=== PATIENT | male | born 1960 | race Caucasian/White ===

== ENCOUNTER 2024-10-12 08:24 | Emergency (ER) | payer MEDICARE, SELFPAY ==
[2024-10-12 08:36] VITALS: BP 135/84
[2024-10-12 08:41] LABS: Glucose - Point of Care 410 mg/dl (70-99)
[2024-10-12 09:09] LABS: % Basophils 0.3 % (0-2); % Immature Granulocytes 0.3 % (0-0.5); % Lymphocytes 19.9 % (20.5-51.1); % Monocytes 4.6 % (1.7-9.3); % Neutrophils 72.9 % (42.2-75.2); Absolute Eosinophils 0.2 10^3/uL (0-0.7); Absolute Monocytes 0.5 10^3/uL (0.1-0.6); Absolute Neutrophils 7.2 10^3/uL (1.4-6.5); Hematocrit 51.4 % (39.0-52.0); Hemoglobin 17.9 g/dL (13.0-18.0); Mean Corp Hgb Conc. 34.8 g/dL (33.0-37.0); Mean Corpuscular Hgb 30.6 pg (27.0-31.0); Mean Corpuscular Volume 87.9 fL (80.0-94.0); Mean Platelet Volume 10.7 fL (7.4-10.4); Nucleated Red Blood Cells % 0 % (-); Platelet Count 168 10^3/uL (130-400); Red Blood Cell Count 5.85 10^6/uL (4.70-6.10); Red Cell Dist. Width 12.5 % (11.5-14.5); White Blood Cell Count 9.9 10^3/uL (4.8-10.8)
--- NOTE | 2024-10-12 09:10 | ED.GENMED ---
History of Present Illness
General
Chief Complaint: Fainting/Passed Out
Time Seen by Provider: 10/12/24 08:57
History of Present Illness
History of Present Illness:
64-year-old male with prior history of hypertension hyperlipidemia as well as long-term tobacco use presents emergency department for evaluation after a syncopal event. states that he was outside smoking a cigarette when he came in he sat
awkwardly on a chair and fell backward, was unconscious for approximately 1 minute. When he awoke he was only minimally confused. Patient has no recollection of the events. He denies any pain after the fall. Specifically denies headache, vision
changes, chest pain, shortness of breath, or back pain. No recent illnesses of any kind. He admits he does not see primary care routinely, only recently acquired insurance. He does admit to recent polyuria and polydipsia
Past History
Past History
ED Past Medical History: HTN, Hypercholesterolemia and Other (GERD)
ED Past Surgical History: Appendectomy
Social History
Tobacco: Smoker
Alcohol: Occasional
Drug: None
Personal:
Living: with family
Family History
Family History: Negative Diabetes
Review of Systems
Review of Systems
Allergies reviewed?: Yes
All Other Systems: ROS reviewed and negative except as documented in HPI and ROS
Phy Exam
Physical Exam
Physical Exam:
GEN: Well appearing, NAD, WDWN
HEENT: Normocephalic and atraumatic, no cephalohematoma, oral mucosa moist, no scleral icterus, no nasal congestion
Cardiac: Regular rate and rhythm, no murmur
Lung: No respiratory distress, no tachypnea, lungs clear albeit diminished in the bases bilaterally
MSK: No gross deformity or injuries, no midline cervical, thoracic, or lumbar spinal tenderness
Skin: Good color, no pallor or jaundice, no rashes
Neuro: AO x3; CN II-XII grossly intact. BUE strength 5/5 in all felix, sensation intact and symmetric. BLE strength 5/5 in all felix, sensation intact and symmetric
Psych: Calm, cooperative
Course
Orders/Labs/Results
Orders:
Orders
10/12/24 08:38
ECG [Electrocardiogram (*1)] Urgent
Reason for Study: Bradycardia / Tachycardia
EKG- Treatment ONCE
10/12/24 08:53
B-Hydroxybutyrate Urgent
Complete Blood Count/With Diff Urgent
Comprehensive Metabolic Panel Urgent
Glycohemoglobin (HgbA1c) Urgent
10/12/24 09:09
Lactated Ringers [Lr] 1,000 ml IV BOLUS
10/12/24 09:17
Add On- LAB Urgent
Tests Added?: hgb A1C
10/12/24 09:43
Insulin Aspart [NOVOLOG vial] 9 units SC NOW STA
10/12/24 11:15
Bedside Glucose- Treatment ONCE
Abnormal Lab Results
10/12/24 10/12/24 10/12/24
08:39 08:53 11:14
MPV 10.7 H fL
(7.4-10.4)
Absolute Neuts (auto) 7.2 H 10^3/uL
(1.4-6.5)
Lymphocytes % 19.9 L %
(20.5-51.1)
Carbon Dioxide 21 L mmol/L
(22-30)
Glucose 412 H mg/dl
(70-99)
Hemoglobin A1c 11.2 H %
(4.0-5.6)
POC Glucose 410 H mg/dl 294 H mg/dl
(70-99) (70-99)
10/12/24 08:53
10/12/24 08:53
Vital Signs
Initial and Last Documented VS:
Initial Vital Signs
Temp Pulse Resp BP Pulse Ox
98.8 F 73 20 135/84 99
10/12/24 08:36 10/12/24 08:36 10/12/24 08:36 10/12/24 08:36 10/12/24 08:36
Last Documented Vital Signs
Temp Pulse Resp BP Pulse Ox
98.8 F 61 14 128/70 97
10/12/24 08:36 10/12/24 11:00 10/12/24 11:00 10/12/24 11:00 10/12/24 11:00
MDM/Problems Addressed
MDM/Problems Addressed:
Patient syncopal event was likely hypovolemic in the setting of markedly elevated blood sugar. Hemoglobin A1c greater than 11%. Will start the patient on p.o. antihyperglycemic's, I communicated with his primary care physician to coordinate
outpatient follow-up, provided education regarding dietary modifications
*Critical Care Note
Total Time (30-74mins, 75-104mins- exclusive of procedures): Not Applicable
ED Attending Note
-
Portions of this chart may have been created with voice recognition software.� Occasional wrong word or��sound alike� substitutions may have occurred due to the inherent limitations of voice recognition software.
Discharge Plan
Departure
Patient Disposition: Home (Routine Discharge)
Date of Disposition: 10/12/24
Time of Disposition: 11:20
Patient with high blood pressure during this ER visit?: No
Discharge Problem:
Diabetes mellitus, new onset
Instructions: Diabetes and diet, Type 2 diabetes - Discharge instructions
Prescriptions:
New
metformin 500 mg tablet
500 mg PO BIDWMEAL Qty: 60 0RF
No Action
acetaminophen [acetaminophen] 325 mg tablet
650 mg PO Q4HPRN PRN (Reason: mild pain) Qty: 1 0RF
polyethylene glycol 3350 [polyethylene glycol 3350] 17 gram powder in packet
17 grams PO DAILYPRN PRN (Reason: constipation) Qty: 1 0RF
ibuprofen 200 mg tablet
400 - 600 mg PO Q6HPRN PRN (Reason: moderate pain) Qty: 1 0RF
oxycodone 5 mg tablet
5 mg PO Q4HPRN PRN (Reason: breakthrough/severe pain) Qty: 5 0RF
Referrals:
Davis Licea MD [Family Provider] -
Activity Restrictions/Additional Instructions:
Call Dr Licea's office today to schedule a follow up within 1 week
Interventions
Interventions:
*Risk Screen - Suicide Last Done: 10/12/24 08:38
*General Assessment Last Done: 10/12/24 09:27
*Neglect/Abuse Screening Last Done: 10/12/24 09:27
*ED COVID-19 Vaccine History Last Done: 10/12/24 09:27
*Nursing Disposition Last Done: 10/12/24 11:34
ED- Cardiac Assessment Last Done: 10/12/24 09:27
ED- Neurological Assessment Last Done: 10/12/24 09:27
Discharge Date and Time
Discharge Date/Time: 10/12/24 11:36
Print Language: PALAUAN
[2024-10-12 09:21] VITALS: BP 135/73
[2024-10-12 09:21] LABS: ALT (SGPT) 22 U/L (0-50); AST (SGOT) 21 U/L (17-59); Albumin 4.3 g/dl (3.5-5.0); Alkaline Phosphatase 94 U/L (38-126); Blood Urea Nitrogen 11 mg/dl (9-20); Calcium 9.7 mg/dl (8.4-10.2); Carbon Dioxide 21 mmol/L (22-30); Chloride 105 mmol/L (98-107); Glucose 412 mg/dl (70-99); Potassium 4.2 mmol/L (3.5-5.1); Sodium 137 mmol/L (135-145); Total Bilirubin 0.7 mg/dl (0.2-1.3); eGFR > 60.00
[2024-10-12 09:26] VITALS: BMI 31.0
[2024-10-12 09:27] LABS: B-Hydroxybutyrate 0.18 mmol/L (0.02-0.27)
[2024-10-12] MEDS: LR 1000 IV (09:36)
[2024-10-12 10:00] VITALS: BP 126/66
[2024-10-12] MEDS: NOVOLOG vial 9 UNITS SC (10:01)
[2024-10-12 10:25] LABS: Glycohemoglobin (HgbA1c) 11.2 % (4.0-5.6)
[2024-10-12 11:00] VITALS: BP 128/70
[2024-10-12 11:16] LABS: Glucose - Point of Care 294 mg/dl (70-99)
== END 2024-10-12 11:36 | disposition home or self-care (01) ==
LOC: EMR 08:24
PROVIDERS: Emergency Medicine; EMERGENCY PHYSICIAN Emergency Medicine; FAMILY PHYSICIAN Family Medicine
DX: E11.9 Type 2 diabetes mellitus without complications (principal); F17.200 Nicotine dependence, unspecified, uncomplicated; I10 Essential (primary) hypertension; E78.00 Pure hypercholesterolemia, unspecified
CPT/HCPCS: 99284; 96360; 96372; 80053; 82010; 82962; 83036; 85025; 93005